=== PATIENT | male | born 1975 | race Caucasian/White ===

== ENCOUNTER 2019-05-27 20:47 | Emergency (ER) | payer OTHER ==
[~2019-05-27] VITALS: Ht 165.1 cm; Wt 68.0 kg
--- NOTE | 2019-05-27 20:53 | NUR ---
patient called not in the waiting room
[2019-05-27] MEDS ORDERED: Ketorolac 30mg Inj IV ONE (21:30)
--- NOTE | 2019-05-27 21:37 | Emergency Room Report ---
History of Present Illness General Chief Complaint: General Complaint Source: Patient Present Illness HPI Patient presents with left inguinal pain. He was seen last night and told he has a hernia. It was reduced last night. He says that it pops out easily. The pain is 10/10 at this time. He has been taking aspirin. Denies any fevers or chills. There is no nausea, vomiting or diarrhea. He sometimes has some difficulty moving his bowels because of the pain in his groin when he bears down. He has not seen a surgeon. Is been present for 3 to 4 months. Recently though the pain is become unbearable. Patient had hernia repair on R side over a year ago. The patient states he is allergic to Seroquel. He is not taking psychiatric medication at this time. No sore throat, chest pain, palpitations, shortness of breath, joint pain, depression, anxiety, visual changes, dizziness, headache. He has a rash on his right wrist. This he says is from his backpack Allergies: Coded Allergies: QUETIAPINE (Verified Allergy, Unknown, 05/26/19) Patient History Past Medical History: see triage record Past Surgical History: other - R hernia repair Social History: Reports: smoking Social History Narrative Homeless Reviewed Nursing Documentation: PMH: Agreed; PSxH: Agreed Nursing Documentation-PMH Hx Asthma: Yes Review of Systems All Other Systems: negative except mentioned in HPI Physical Exam Vital Signs Date Time Temp Pulse Resp B/P (MAP) Pulse Ox O2 Delivery O2 Flow Rate FiO2 05/27/19 21:11 98.2 96 18 150/111 (124) 96 Room Air Sp02 EP Interpretation: reviewed, normal General Appearance: well appearing, no apparent distress, GCS 15 Head: normocephalic Eyes: bilateral eye normal inspection, bilateral eye PERRL, bilateral eye EOMI ENT: moist mucus membranes Neck: supple Respiratory: lungs clear, normal breath sounds Cardiovascular #1: regular rate, rhythm Cardiovascular #2: 2+ radial (R) Gastrointestinal: normal inspection, normal bowel sounds, non tender, no mass, non-distended, no guarding, no rebound, hernia - Left inguinal with tenderness, scaphoid Genitourinary: normal inspection Musculoskeletal: back normal, normal range of motion, gait/station normal Neurologic: alert, oriented x3, grossly normal Psychiatric: mood/affect normal Skin: no rash, warm/dry Medical Decision Making Diagnostic Impression: Primary Impression: Left inguinal hernia ER Course Patient presents with left groin pain with a history of hernia. Differential includes inguinal hernia, strangulated hernia amongst others. Evaluation with labs and x-ray. The patient will be treated with Toradol and Tylenol. The hernia is easily reduced but then pops back out. Labs with minimal leukocytosis. CMP normal. Xray without obstruction. Patient improved with pain. Offered to reduce hernia - declined as "pops back out" easily. Frustrated that hernia will not get repaired now. Discussed indications for surgery. Given referrals. Patient stable for outpatient observation and treatment. Laboratory Tests Test 05/27/19 21:30 05/28/19 00:15 White Blood Count 11.8 K/UL (4.8-10.8) H Red Blood Count 4.75 M/UL (4.70-6.10) Hemoglobin 15.1 G/DL (14.2-18.0) Hematocrit 43.4 % (42.0-52.0) Mean Corpuscular Volume 91 FL (80-99) Mean Corpuscular Hemoglobin 31.8 PG (27.0-31.0) H Mean Corpuscular Hemoglobin Concent 34.8 G/DL (32.0-36.0) Red Cell Distribution Width 11.3 % (11.6-14.8) L Platelet Count 420 K/UL (150-450) Mean Platelet Volume 4.8 FL (6.5-10.1) L Neutrophils (%) (Auto) 66.6 % (45.0-75.0) Lymphocytes (%) (Auto) 23.1 % (20.0-45.0) Monocytes (%) (Auto) 6.7 % (1.0-10.0) Eosinophils (%) (Auto) 2.8 % (0.0-3.0) Basophils (%) (Auto) 0.8 % (0.0-2.0) Prothrombin Time 10.0 SEC (9.30-11.50) Prothrombin Time INR 0.9 (0.9-1.1) Activated Partial Thromboplast Time 28 SEC (23-33) Sodium Level 141 MMOL/L (136-145) Potassium Level 4.2 MMOL/L (3.5-5.1) Chloride Level 102 MMOL/L (98-107) Carbon Dioxide Level 32 MMOL/L (21-32) Anion Gap 7 mmol/L (5-15) Blood Urea Nitrogen 18 mg/dL (7-18) Creatinine 1.1 MG/DL (0.55-1.30) Estimate Glomerular Filtration Rate > 60 mL/min (>60) Glucose Level 96 MG/DL (74-106) Calcium Level 8.8 MG/DL (8.5-10.1) Total Bilirubin 0.6 MG/DL (0.2-1.0) Aspartate Amino Transferase (AST) 26 U/L (15-37) Alanine Aminotransferase (ALT) 30 U/L (12-78) Alkaline Phosphatase 76 U/L (46-116) Total Protein 7.5 G/DL (6.4-8.2) Albumin 4.0 G/DL (3.4-5.0) Globulin 3.5 g/dL Albumin/Globulin Ratio 1.1 (1.0-2.7) Lipase 81 U/L (73-393) Urine Color Yellow Urine Appearance Clear Urine pH 6 (4.5-8.0) Urine Specific Morris 1.025 (1.005-1.035) Urine Protein 1+ (NEGATIVE) H Urine Glucose (UA) Negative (NEGATIVE) Urine Ketones 2+ (NEGATIVE) H Urine Blood 1+ (NEGATIVE) H Urine Nitrite Negative (NEGATIVE) Urine Bilirubin Negative (NEGATIVE) Urine Urobilinogen 1 MG/DL (0.0-1.0) H Urine Leukocyte Esterase Negative (NEGATIVE) Urine RBC 0-2 /HPF (0 - 0) H Urine WBC 0 /HPF (0 - 0) Urine Squamous Epithelial Cells None /LPF (NONE/OCC) Urine Bacteria None /HPF (NONE) Other X-Ray Diagnostic Results Other X-Ray Diagnostic Results : X-Ray ordered: abd # of Views/Limited Vs Complete: 2 View Indication: Other EP Interpretation: Yes Interpretation: nonspecific bowel gas, no sbo, other - no masses Impression: No acute disease Electronically Signed by: Electronically signed by Reg Talbert MD Last Vital Signs Date Time Temp Pulse Resp B/P (MAP) Pulse Ox O2 Delivery O2 Flow Rate FiO2 05/27/19 23:00 98.4 82 18 141/82 98 Room Air Status: improved Disposition: HOME, SELF-CARE Condition: Improved Scripts Lactulose (LACTULOSE*) 20 Gm/30 Ml Solution 30 ML ORAL BID PRN for Constipation, #240 ML 0 Refills Prov: Reg Talbert MD 05/28/19 Acetaminophen (Tylenol) 325 Mg Tablet 650 MG ORAL Q6H PRN for Prn Pain/Headache/Temp > 101, #20 TAB 0 Refills Prov: Reg Talbert MD 05/28/19 Acetaminophen With Codeine (T#3) (TYLENOL #3 TAB*) Y Tab 1 TAB ORAL Q8H PRN for For Pain, #10 TAB Prov: Reg Talbert MD 05/28/19 Ibuprofen* (MOTRIN*) 600 Mg Tablet 600 MG ORAL Q6H PRN for For Pain, #20 TAB Prov: Reg Talbert MD 05/28/19 Reg Talbert MD May 27, 2019 21:37
[2019-05-27 21:51] LABS: BASOPHILS % (AUTO) 0.8 % (0.0-2.0); EOSINOPHILS % (AUTO) 2.8 % (0.0-3.0); HEMATOCRIT 43.4 % (42.0-52.0); HEMOGLOBIN 15.1 G/DL (14.2-18.0); LYMPHOCYTES % (AUTO) 23.1 % (20.0-45.0); MEAN CORPUSCULAR VOLUME 91 FL (80-99); MONOCYTES % (AUTO) 6.7 % (1.0-10.0); NEUTROPHILS % (AUTO) 66.6 % (45.0-75.0); PLATELET COUNT 420 K/UL (150-450); RED BLOOD COUNT 4.75 M/UL (4.70-6.10); RED CELL DISTRIBUTION WIDTH 11.3 % (11.6-14.8); WHITE BLOOD COUNT 11.8 K/UL (4.8-10.8)
[2019-05-27 21:55] LABS: ANION GAP 7 mmol/L (5-15); BLOOD UREA NITROGEN 18 mg/dL (7-18); CALCIUM 8.8 MG/DL (8.5-10.1); CARBON DIOXIDE 32 MMOL/L (21-32); CHLORIDE 102 MMOL/L (98-107); CREATININE 1.1 MG/DL (0.55-1.30); POTASSIUM 4.2 MMOL/L (3.5-5.1); SODIUM 141 MMOL/L (136-145)
[2019-05-27 22:00] LABS: ALANINE AMINOTRANSFERASE 30 U/L (12-78); ALBUMIN/GLOBULIN RATIO 1.1 (1.0-2.7); ALKALINE PHOSPHATASE 76 U/L (46-116); ASPARTATE AMINO TRANSFERASE 26 U/L (15-37); BILIRUBIN,TOTAL 0.6 MG/DL (0.2-1.0)
[2019-05-27 22:03] LABS: INR 0.9 (0.9-1.1)
[2019-05-27 23:00] VITALS: BP 141/82
[2019-05-28 00:43] LABS: APPEARANCE,URINE CLEAR; BILIRUBIN, URINE NEGATIVE (NEGATIVE); GLUCOSE, URINE (UA) NEGATIVE (NEGATIVE); KETONES,URINE 2+ (NEGATIVE); LEUKOCYTE ESTERASE ,URINE NEGATIVE (NEGATIVE); NITRITE,URINE NEGATIVE (NEGATIVE); PH,URINE 6 (4.5-8.0); PROTEIN,URINE 1+ (NEGATIVE); UROBILINOGEN,URINE 1 MG/DL (0.0-1.0)
[2019-05-28 00:47] LABS: COLOR,URINE YELLOW
[2019-05-28] MEDS ORDERED: ACETAMINOPHEN-1 EAC1 ORAL (01:21)
[2019-05-28] MEDS ORDERED: TYLENOL325 MG ORAL (01:21)
[2019-05-28] MEDS ORDERED: IBUPROFEN600 MG ORAL (01:21)
[2019-05-28] MEDS ORDERED: LACTULOSE20 GM/301 ORAL (01:23)
--- NOTE | 2019-05-28 10:17 | Diagnostic Imaging Report ---
Indication: Abdominal pain Technique: Supine view of the abdomen Comparison: none Findings: Unremarkable bowel gas pattern. No masses or unusual calcifications. Impression: Negative
== END 2019-05-28 22:18 | disposition home or self-care (01) ==
LOC: EMR 21:32
DX: K40.90 Unilateral inguinal hernia, without obstruction or gangrene, not specified as recurrent (principal); D72.829 Elevated white blood cell count, unspecified; Z88.8 Allergy status to other drugs, medicaments and biological substances; R21 Rash and other nonspecific skin eruption; F17.200 Nicotine dependence, unspecified, uncomplicated
CPT/HCPCS: 36415; 74018; 80053; 81003; 83690; 85025; 85610; 85730; 86850; 86900; 86901; 96374; J1885; Z7502; 99284

== ENCOUNTER → 2019-10-16 | Emergency (ER) | payer MEDICAID, OTHER ==
[~2019-10-16] MED LIST: ACETAMINOPHEN-1 EAC1 ORAL; IBUPROFEN600 MG ORAL; LACTULOSE20 GM/301 ORAL; TYLENOL325 MG ORAL
--- NOTE | 2019-10-16 17:26 | Emergency Room Report ---
History of Present Illness General Chief Complaint: To Be Triaged Present Illness HPI Patient checked in however left from the waiting room prior to triage and prior to my evaluation. I did not interact with the patient. Allergies: Coded Allergies: QUETIAPINE (Verified Allergy, Unknown, 05/26/19) Nursing Documentation-[facility] Hx Asthma: Yes Medical Decision Making Diagnostic Impression: Primary Impression: Patient left without being seen ER Course Patient checked in but left from the waiting room prior to triage and my evaluation. I had no interaction with this patient. Disposition: LEFT W/OUT BEING SEEN Juan Luis Bianchi MD Oct 16, 2019 17:26
== END | disposition left against medical advice (07) ==
LOC: EMR 17:05
DX: K46.9 Unspecified abdominal hernia without obstruction or gangrene (principal); J45.909 Unspecified asthma, uncomplicated; Z88.8 Allergy status to other drugs, medicaments and biological substances; Z53.21 Procedure and treatment not carried out due to patient leaving prior to being seen by health care provider

== ENCOUNTER 2020-01-08 22:59 | Emergency (ER) | payer OTHER ==
[~2020-01-08] VITALS: Ht 162.6 cm; Wt 63.5 kg
[2020-01-08] MEDS ORDERED: DiphenhydrAMINE 50mg/ml Inj IVP ONE (23:00)
[2020-01-08] MEDS ORDERED: Ketorolac 30mg Inj IV ONE (23:00)
[2020-01-08] MEDS ORDERED: Metoclopramide 10mg/2ml Inj IVP ONE (23:00)
--- NOTE | 2020-01-08 23:04 | Emergency Room Report ---
History of Present Illness General Chief Complaint: Headache Source: Patient, EMS Present Illness HPI Patient is a 44-year-old male past medical history of stroke who was brought in by EMS for headache. Patient complains of generalized headache for 2 years. He denies any fever or chills. He denies any new focal weakness. He denies any chest pain or shortness of breath. He denies any head trauma. She denies any blurry vision. He denies any smoking drinking or drug use. He states that he has no medications for his headache. Allergies: Coded Allergies: QUETIAPINE (Verified Allergy, Unknown, 05/26/19) Patient History Reviewed Nursing Documentation: PMH: Agreed; PSxH: Agreed Nursing Documentation-PMH Hx Asthma: Yes Review of Systems All Other Systems: negative except mentioned in HPI Physical Exam Sp02 EP Interpretation: reviewed, normal General Appearance: no apparent distress, alert, GCS 15, non-toxic, other - Poorly groomed Head: normocephalic, atraumatic Eyes: bilateral eye normal inspection, bilateral eye PERRL ENT: hearing grossly normal, normal pharynx, no angioedema, normal voice Neck: full range of motion, supple/symm/no masses Respiratory: chest non-tender, lungs clear, normal breath sounds, speaking full sentences Cardiovascular #1: regular rate, rhythm, no edema Gastrointestinal: normal bowel sounds, non tender, soft, non-distended, no guarding, no rebound Rectal: deferred Musculoskeletal: normal range of motion, no calf tenderness, moves extm spontaneously, gait/station normal 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 On reevaluation he states that his headache has improved. Patient's drug screen positive for methamphetamines as well as marijuana. Patient has mild leukocytosis. I suspect the headache that the patient is presenting with is non -emergent in etiology. Meningitis and encephalitis were considered unlikely given patient has no significant fever, focal neurological deficits, petechiae, seizure like symptoms, nuchal rigidity, kernig sign, or brudzinski sign. Ischemic and hemorrhagic CVA also considered unlikely given no new focal neurological deficits, amnesia, slurred speech, or aphasia. In addition, patient reports gradual onset of REYNA and not a sudden onset/severe REYNA so I highly doubt SAH. Head CT was negative for any acute abnormal findings and laboratory findings reviewed and showed no acute abnormalities suggestive of infection. The patient was counseled that, though unlikely, the possibility of an emergent cause of headache may still be present and that the patient should return immediately if symptoms persists or worsen. I believe the patient is stable for discharge to follow-up with their PMD. Laboratory Tests Test 01/08/20 22:10 01/08/20 23:05 White Blood Count 13.7 K/UL (4.8-10.8) H Red Blood Count 4.23 M/UL (4.70-6.10) L Hemoglobin 13.7 G/DL (14.2-18.0) L Hematocrit 37.9 % (42.0-52.0) L Mean Corpuscular Volume 90 FL (80-99) Mean Corpuscular Hemoglobin 32.4 PG (27.0-31.0) H Mean Corpuscular Hemoglobin Concent 36.1 G/DL (32.0-36.0) H Red Cell Distribution Width 11.4 % (11.6-14.8) L Platelet Count 346 K/UL (150-450) Mean Platelet Volume 5.5 FL (6.5-10.1) L Neutrophils (%) (Auto) 75.6 % (45.0-75.0) H Lymphocytes (%) (Auto) 14.9 % (20.0-45.0) L Monocytes (%) (Auto) 6.2 % (1.0-10.0) Eosinophils (%) (Auto) 2.5 % (0.0-3.0) Basophils (%) (Auto) 0.8 % (0.0-2.0) Sodium Level 138 MMOL/L (136-145) Potassium Level 3.3 MMOL/L (3.5-5.1) L Chloride Level 102 MMOL/L (98-107) Carbon Dioxide Level 32 MMOL/L (21-32) Anion Gap 4 mmol/L (5-15) L Blood Urea Nitrogen 15 mg/dL (7-18) Creatinine 0.9 MG/DL (0.55-1.30) Estimated Glomerular Filtration Rate > 60 mL/min (>60) Glucose Level 128 MG/DL (74-106) H Calcium Level 9.0 MG/DL (8.5-10.1) Magnesium Level 1.9 MG/DL (1.8-2.4) Total Bilirubin 0.3 MG/DL (0.2-1.0) Aspartate Amino Transferase (AST) 24 U/L (15-37) Alanine Aminotransferase (ALT) 25 U/L (12-78) Alkaline Phosphatase 68 U/L (46-116) Total Protein 7.0 G/DL (6.4-8.2) Albumin 3.5 G/DL (3.4-5.0) Globulin 3.5 g/dL Albumin/Globulin Ratio 1.0 (1.0-2.7) Urine Color Yellow Urine Appearance Clear Urine pH 6.5 (4.5-8.0) Urine Specific Shannon 1.015 (1.005-1.035) Urine Protein Negative (NEGATIVE) Urine Glucose (UA) Negative (NEGATIVE) Urine Ketones Negative (NEGATIVE) Urine Blood 1+ (NEGATIVE) H Urine Nitrite Negative (NEGATIVE) Urine Bilirubin Negative (NEGATIVE) Urine Urobilinogen 1 MG/DL (0.0-1.0) H Urine Leukocyte Esterase 1+ (NEGATIVE) H Urine RBC 0-2 /HPF (0 - 0) H Urine WBC 0-2 /HPF (0 - 0) Urine Squamous Epithelial Cells None /LPF (NONE/OCC) Urine Bacteria None /HPF (NONE) Urine Opiates Screen Negative (NEGATIVE) Urine Barbiturates Screen Negative (NEGATIVE) Phencyclidine (PCP) Screen Negative (NEGATIVE) Urine Amphetamines Screen Positive (NEGATIVE) H Urine Benzodiazepines Screen Negative (NEGATIVE) Urine Cocaine Screen Negative (NEGATIVE) Urine Marijuana (THC) Screen Positive (NEGATIVE) H Disposition: HOME, SELF-CARE Condition: Stable Scripts Ibuprofen* (MOTRIN*) 600 Mg Tablet 600 MG ORAL FOUR TIMES A DAY, #30 TAB 0 Refills Prov: Sonia Jimenez M.D. 01/09/20 Additional Instructions: The patient was provided with discharge instructions, notified to follow-up with a primary care doctor and or specialist in the next 24-48 hours, and to return to the ED if they have worsening of their symptoms. Please note that this report is being documented using DRAGON technology. This can lead to erroneous entry secondary to incorrect interpretation by the dictating instrument. Sonia Jimenez M.D. Jan 08, 2020 23:04
[2020-01-08 23:20] LABS: APPEARANCE,URINE CLEAR; BILIRUBIN, URINE NEGATIVE (NEGATIVE); GLUCOSE, URINE (UA) NEGATIVE (NEGATIVE); KETONES,URINE NEGATIVE (NEGATIVE); LEUKOCYTE ESTERASE ,URINE 1+ (NEGATIVE); NITRITE,URINE NEGATIVE (NEGATIVE); PH,URINE 6.5 (4.5-8.0); PROTEIN,URINE NEGATIVE (NEGATIVE); UROBILINOGEN,URINE 1 MG/DL (0.0-1.0)
[2020-01-08 23:22] LABS: BASOPHILS % (AUTO) 0.8 % (0.0-2.0); EOSINOPHILS % (AUTO) 2.5 % (0.0-3.0); HEMATOCRIT 37.9 % (42.0-52.0); HEMOGLOBIN 13.7 G/DL (14.2-18.0); LYMPHOCYTES % (AUTO) 14.9 % (20.0-45.0); MEAN CORPUSCULAR VOLUME 90 FL (80-99); MONOCYTES % (AUTO) 6.2 % (1.0-10.0); NEUTROPHILS % (AUTO) 75.6 % (45.0-75.0); PLATELET COUNT 346 K/UL (150-450); RED BLOOD COUNT 4.23 M/UL (4.70-6.10); RED CELL DISTRIBUTION WIDTH 11.4 % (11.6-14.8); WHITE BLOOD COUNT 13.7 K/UL (4.8-10.8)
[2020-01-08 23:24] LABS: COLOR,URINE YELLOW
[2020-01-08 23:38] LABS: ANION GAP 4 mmol/L (5-15); BLOOD UREA NITROGEN 15 mg/dL (7-18); CARBON DIOXIDE 32 MMOL/L (21-32); CHLORIDE 102 MMOL/L (98-107); CREATININE 0.9 MG/DL (0.55-1.30); POTASSIUM 3.3 MMOL/L (3.5-5.1); SODIUM 138 MMOL/L (136-145)
[2020-01-08 23:42] LABS: ALANINE AMINOTRANSFERASE 25 U/L (12-78); ALBUMIN 3.5 G/DL (3.4-5.0); ALKALINE PHOSPHATASE 68 U/L (46-116); ASPARTATE AMINO TRANSFERASE 24 U/L (15-37); BILIRUBIN,TOTAL 0.3 MG/DL (0.2-1.0)
[2020-01-08 23:45] VITALS: BP 160/99
[2020-01-09] MEDS ORDERED: IBUPROFEN600 M1 ORAL (00:03)
--- NOTE | 2020-01-09 00:12 | Diagnostic Imaging Report ---
EXAM: CT Head Without Intravenous Contrast CLINICAL HISTORY: INJ TECHNIQUE: Axial computed tomography images of the head/brain without intravenous contrast. CTDI is 53.40 mGy and DLP is 1072.20 mGy-cm. One or more of the following dose reduction techniques were used: automated exposure control, adjustment of the mA and/or kV according to patient size, use of iterative reconstruction technique. COMPARISON: None available. FINDINGS: Brain: Unremarkable. No hemorrhage. No significant white matter disease. No edema. Ventricles: Unremarkable. No ventriculomegaly. Bones/joints: Unremarkable. No acute fracture. Soft tissues: Unremarkable. Sinuses: Unremarkable as visualized. No acute sinusitis. Mastoid air cells: Unremarkable as visualized. No mastoid effusion. IMPRESSION: No acute intracranial abnormality.
[2020-01-09 02:05] VITALS: BP 142/89
== END 2020-01-09 02:05 | disposition home or self-care (01) ==
LOC: EDBD 22:59 → EDUNIT# 22:59 → EMR 23:28
DX: R51 Headache (principal); E87.6 Hypokalemia; F15.10 Other stimulant abuse, uncomplicated; D72.829 Elevated white blood cell count, unspecified; Z88.8 Allergy status to other drugs, medicaments and biological substances; S60.812A Abrasion of left wrist, initial encounter; S60.811A Abrasion of right wrist, initial encounter; R68.3 Clubbing of fingers; X58.XXXA Exposure to other specified factors, initial encounter; Y92.9 Unspecified place or not applicable
CPT/HCPCS: 36415; 70450; 80053; 80307; 81003; 83735; 85025; 96361; 96374; 96375; J1200; J1885; J2765; J7030; Z7502; 99284; J8499